=== PATIENT | female | born 1990 | race Caucasian/White ===

== ENCOUNTER 2020-06-07 11:32 | Emergency (ER) | payer BC ==
[2020-06-07] MEDS ORDERED: Acetaminophen/oxyCODONE 325-10 MG Tab PO ONE (12:21)
--- NOTE | 2020-06-07 12:21 | EDM.PDOC ---
ED HPI GENERAL MEDICAL PROBLEM - General Chief Complaint: Gastrointestinal Problem Stated Complaint: PAIN Time Seen by Provider: 06/07/20 11:37 Source of Information: Reports: Patient History Limitations: Reports: No Limitations - History of Present Illness INITIAL COMMENTS - FREE TEXT/NARRATIVE: 21-year-old female presents for abdominal pain. Patient notes that roughly 2- 1/2 weeks ago she began to experience a sore throat and nonproductive cough. Symptoms seem to improve but she noted pain and fullness in her upper abdomen. She went to her doctor yesterday and had a CT scan of her abdomen and pelvis revealing hepatosplenomegaly. She also had labs and urine studies which showed protein in her urine with other labs grossly unremarkable. She thinks that they did a mononucleosis test but she is not 100% certain. Her doctor told her to come to the emergency department if her pain worsened and she noted this morning that it worsened so she came into the emergency department. Past surgical history of appendectomy abdomen Pain Score (Numeric/FACES): 7 - Related Data Allergies Allergy/AdvReac Type Severity Reaction Status Date / Time No Known Allergies Allergy Verified 06/07/20 12:07 Home Meds: Home Meds Acetaminophen/oxyCODONE [Percocet 325-5 MG] 1 each PO Q6H PRN #12 tab 06/07/20 [Rx] Amoxicillin/Clavulanate K [Augmentin 875-125 MG] 1 tab PO BID 06/07/20 [History] Ibuprofen [Motrin] 600 mg PO Q6H PRN #20 tab 06/07/20 [Rx] busPIRone [Buspar] 06/07/20 [History] lamoTRIgine [LaMICtal] 06/07/20 [History] traZODone 06/07/20 [History] Past Medical History [employer]VEL[employer] History: Reports: - Past Surgical History GI Surgical History: Reports: Appendectomy Musculoskeletal Surgical History: Reports: Other (See Below) Other Musculoskeletal Surgeries/Procedures:: Left Arm Social & Family History - Family History GI: Reports: Other (See Below) Other GI Family History: Liver & Kidney failure - Tobacco Use Tobacco Use Status *Q: Never Tobacco User - Recreational Drug Use Recreational Drug Use: No ED ROS GENERAL - Review of Systems Review Of Systems: Comprehensive ROS is negative, except as noted in HPI. ED EXAM, GENERAL - Physical Exam Exam: See Below Exam Limited By: No Limitations General Appearance: Alert, WD/WN, No Apparent Distress Throat/Mouth: Normal Oropharynx, Normal Voice, No Airway Compromise Head: Atraumatic, Normocephalic Neck: Normal Inspection Respiratory/Chest: No Respiratory Distress, Lungs Clear, Normal Breath Sounds, No Accessory Muscle Use Cardiovascular: Normal Peripheral Pulses, Regular Rate, Rhythm GI/Abdominal: Soft, Other (subjective diffuse TTP) Extremities: Normal Inspection Neurological: Alert Psychiatric: Normal Affect, Normal Mood Skin Exam: Warm, Dry, Intact, Normal Color Course - Vital Signs Last Recorded V/S: Last Vital Signs Temp 97.8 F 06/07/20 12:03 Pulse 96 06/07/20 12:03 Resp 18 06/07/20 12:03 BP 98/65 06/07/20 12:03 Pulse Ox 99 06/07/20 12:03 - Orders/Labs/Meds Labs: Laboratory Tests 06/07/20 Range/Units 07:45 Monoscreen NEGATIVE (NEG) Meds: Medications Discontinued Medications Generic Name Dose Route Start Last Admin Trade Name Paul PRN Reason Stop Dose Admin Ketorolac Tromethamine 30 mg 06/07/20 12:53 06/07/20 13:07 Ketorolac 30 Mg/Ml Sdv IM 06/07/20 12:54 30 mg ONETIME ONE Administration Oxycodone/Acetaminophen 1 tab 06/07/20 12:21 06/07/20 12:53 Acetaminophen/Oxycodone 325-10 Mg Tab PO 06/07/20 12:22 Not Given ONETIME ONE - Re-Assessments/Exams Free Text/Narrative Re-Assessment/Exam: 06/07/20 12:35 Will get monospot and give medication for pain. 06/07/20 13:25 Monospot is negative. Will discharge patient with pain medication but recommend that she follow-up with her primary care physician. I do long discussion with patient regarding diagnostic uncertainty and why it is important for her to follow-up with her PCP. Return precautions including worsening of pain and inability to tolerate p.o. were discussed. Departure - Departure Time of Disposition: 13:28 Disposition: Home, Self-Care 01 Condition: Good Clinical Impression: Abdominal pain Qualifiers: Abdominal location: generalized Qualified Code(s): R10.84 - Generalized abdominal pain - Discharge Information Prescriptions: Ibuprofen [Motrin] 600 mg PO Q6H PRN #20 tab PRN Reason: Pain Acetaminophen/oxyCODONE [Percocet 325-5 MG] 1 each PO Q6H PRN #12 tab PRN Reason: Pain Instructions: Abdominal Pain, Adult Referrals: Adriana Baez NP [Primary Care Provider] - Forms: ED Department Discharge Additional Instructions: Your Monospot test was negative. The rest of your labs that your primary care physician ordered were grossly unremarkable but you will need to discuss with her the results. I do not believe you are having a medical emergency requiring admission to the hospital, but there is diagnostic uncertainty and this will certainly need to be followed up. You can follow-up with your primary care physician and she may need to send you to a specialist if she is unable to determine the cause of your enlarged liver and spleen. There is also the possibility that the Monospot test that we did was a false negative to your primary care physician may talk to you about further testing for that. The following information is given to patients seen in the emergency department who are being discharged to home. This information is to outline your options for follow-up care. We provide all patients seen in our emergency department with a follow-up referral. The need for follow-up, as well as the timing and circumstances, are variable depending upon the specifics of your emergency department visit. If you don't have a primary care physician on staff, we will provide you with a referral. We always advise you to contact your personal physician following an emergency department visit to inform them of the circumstance of the visit and for follow-up with them and/or the need for any referrals to a consulting specialist. The emergency department will also refer you to a specialist when appropriate. This referral assures that you have the opportunity for follow-up care with a specialist. All of these measure are taken in an effort to provide you with optimal care, which includes your follow-up. Under all circumstances we always encourage you to contact your private physician who remains a resource for coordinating your care. When calling for follow-up care, please make the office aware that this follow-up is from your recent emergency room visit. If for any reason you are refused follow-up, please contact the [facility] Emergency Department at and asked to speak to the emergency department charge nurse. Please follow up with your primary care physician. If you do not have a primary care physician, see below: [facility] [address], [place] [id number] [facility] [address] [place], [place] [id number] [facility] [address] [place] [address] Sepsis Event Note (ED) - Evaluation Sepsis Screening Result: Possible Sepsis Risk - Focused Exam Vital Signs: Vital Signs Temp Pulse Resp BP Pulse Ox 06/07/20 12:03 97.8 F 96 18 98/65 99
[2020-06-07] MEDS ORDERED: Ketorolac 30 MG/ML SDV IM ONE (12:53)
[2020-06-07 13:44] VITALS: BP 110/73; PULSE 91
== END 2020-06-07 13:44 | disposition home or self-care (01) ==
LOC: MW.ED 11:32
DX: R10.84 Generalized abdominal pain (principal); Z90.49 Acquired absence of other specified parts of digestive tract; Z79.899 Other long term (current) drug therapy
CPT/HCPCS: 36415; 86308; 96372; 99284; J1885; 99283

== ENCOUNTER 2023-05-19 08:51 | Emergency (ER) | payer OTHER ==
[2023-05-19] MEDS ORDERED: Sodium Chloride 0.9% 20 ML SDV IV PRN (08:57)
[2023-05-19 09:13] LABS: BASOPHILS ABSOLUTE AUTO 0.07 K/uL (0.00-0.20); BASOPHILS PERCENT AUTO 0.8 % (0.0-1.0); EOSINOPHILS ABSOLUTE AUTO 0.15 K/uL (0.00-0.45); EOSINOPHILS PERCENT AUTO 1.7 % (0.0-6.0); HEMATOCRIT 41.4 % (37.0-47.0); HEMOGLOBIN 14.1 g/dL (12.0-16.0); IMMATURE GRAN ABSOLUTE AUTO 0.12 K/uL (0.00-0.05); IMMATURE GRAN PERCENT AUTO 1.3 % (0.0-0.4); LYMPHOCYTES PERCENT AUTO 33.3 % (24.0-44.0); MEAN CORPUSCULAR HEMOGLOBIN 29.3 pg (28.0-32.0); MEAN CORPUSCULAR HGB CONC 34.1 g/dL (32.0-36.0); MEAN CORPUSCULAR VOLUME 85.9 fL (83.0-99.0); MEAN PLATELET VOLUME 8.8 fL (9.4-12.3); MONOCYTES ABSOLUTE AUTO 0.43 K/uL (0.00-0.80); MONOCYTES PERCENT AUTO 4.8 % (0.0-8.0); NEUTROPHILS ABSOLUTE AUTO 5.23 K/uL (1.80-7.70); NEUTROPHILS PERCENT AUTO 58.1 % (41.0-71.0); PLATELET COUNT,PLT 277 K/uL (150-400); RED BLOOD CELL COUNT 4.82 M/uL (4.10-5.30)
[2023-05-19] MEDS: Iopamidol 755 MG/ML 500 ML Multipack Bottle IVPUSH STA (09:16)
[2023-05-19] MEDS: Sodium Chloride 0.9% 2.5 ML Syringe FLUSH PRN (09:29)
[2023-05-19] MEDS: Sodium Chloride 0.9% 10 ML Syringe FLUSH PRN (09:29)
[2023-05-19] MEDS: Sodium Chloride 0.9% 1,000 ML IV STA (10:11)
[2023-05-19 10:21] LABS: ALANINE AMINOTRANSFERASE,ALT 41 IU/L (14-63); ALBUMIN 3.8 g/dL (3.4-5.0); ALKALINE PHOSPHATASE 106 U/L (46-116); ASPARTATE AMNIOTRANSFERASE,AST 14 IU/L (15-37); BILIRUBIN TOTAL 0.3 mg/dL (0.2-1.0); BLOOD UREA NITROGEN,BUN 9 mg/dL (7.0-18.0); CALCIUM 9.5 mg/dL (8.5-10.1); CARBON DIOXIDE,CO2 22.3 mmol/L (21.0-32.0); CHLORIDE,CL 106 mmol/L (98-107); CREATININE 0.9 mg/dL (0.6-1.0); GLUCOSE RANDOM 107 mg/dL (74-106); POTASSIUM,K 3.7 mmol/L (3.5-5.1); PROTEIN TOTAL,TP 7.7 g/dL (6.4-8.2); SODIUM,NA 141 mmol/L (136-145)
[2023-05-19 10:22] LABS: ESTIMATED GFR 88 mL/min (>60)
[2023-05-19 10:27] LABS: APPEARANCE,URINE CLEAR; BILIRUBIN,URINE NEGATIVE (NEGATIVE); COLOR,URINE YELLOW; GLUCOSE,URINE NEGATIVE (NEGATIVE); KETONES,URINE NEGATIVE (NEGATIVE); LEUKOCYTE ESTERASE,URINE NEGATIVE (NEGATIVE); NITRITE,URINE NEGATIVE (NEGATIVE); OCCULT BLOOD,URINE NEGATIVE (NEGATIVE); PROTEIN,URINE NEGATIVE (NEGATIVE)
[2023-05-19] MEDS: Ketorolac 30 MG/ML SDV IVPUSH ONE (10:32)
[2023-05-19 10:35] LABS: INR 0.94 (0.86-1.11); PTT,PARTIAL THROMBOPLSTIN TIME 25.6 SEC (23.9-30.7)
[2023-05-19] MEDS: Gadobenate Dimeglumine 529 MG/ML 20 ML SDV IVPUSH STA (11:17)
[2023-05-19 12:32] VITALS: BP 127/87; PULSE 84
[2023-05-19] MEDS: atorvaSTATin 20 MG Tab PO ONE (12:33)
[2023-05-19] MEDS: Aspirin 81 MG Tab.Chew PO ONE (12:33)
== END 2023-05-19 12:50 ==
LOC: MW.ED 08:51
DX: I63.9 Cerebral infarction, unspecified (principal); Z90.49 Acquired absence of other specified parts of digestive tract; Z79.899 Other long term (current) drug therapy
CPT/HCPCS: 36415; 70450; 70496; 70498; 70553; 71045; 80053; 81003; 82947; 84443; 85025; 85610; 85730; 93005; 96361; 96374; 99285; A9270; A9577; J1885; J3490; J7030; Q9967

== ENCOUNTER 2023-10-12 10:02 | Emergency (ER) | payer OTHER ==
[2023-10-12] MEDS: Sodium Chloride 0.9% 1,000 ML IV ONE (10:45)
[2023-10-12] MEDS: Ondansetron 4 MG/2 ML SDV IVPUSH ONE (10:45)
[2023-10-12 10:46] LABS: APPEARANCE,URINE CLEAR; BILIRUBIN,URINE NEGATIVE (NEGATIVE); COLOR,URINE YELLOW; GLUCOSE,URINE NEGATIVE (NEGATIVE); KETONES,URINE NEGATIVE (NEGATIVE); LEUKOCYTE ESTERASE,URINE TRACE (NEGATIVE); NITRITE,URINE NEGATIVE (NEGATIVE); OCCULT BLOOD,URINE LARGE (NEGATIVE); PROTEIN,URINE NEGATIVE (NEGATIVE); UROBILINOGEN,URINE 0.2 EU/dL (<2.0)
[2023-10-12] MEDS: Morphine 4 MG/ML Syringe IVPUSH ONE (10:46)
[2023-10-12] MEDS: Ketorolac 30 MG/ML SDV IVPUSH ONE (10:54)
[2023-10-12 10:55] LABS: BACTERIA,URINE FEW (NEGATIVE); EPITHELIAL CELLS,URINE FEW (NONE-FEW); MUCUS,URINE LIGHT (NONE-MOD); RBC,URINE 15-18 (0-2/HPF); WBC,URINE 0-2 (0-5/HPF)
[2023-10-12 10:58] LABS: BASOPHILS ABSOLUTE AUTO 0.06 K/uL (0.00-0.20); BASOPHILS PERCENT AUTO 0.8 % (0.0-1.0); EOSINOPHILS ABSOLUTE AUTO 0.13 K/uL (0.00-0.45); EOSINOPHILS PERCENT AUTO 1.6 % (0.0-6.0); HEMATOCRIT 39.9 % (37.0-47.0); HEMOGLOBIN 13.7 g/dL (12.0-16.0); IMMATURE GRAN ABSOLUTE AUTO 0.08 K/uL (0.00-0.05); LYMPHOCYTES PERCENT AUTO 33.8 % (24.0-44.0); MEAN CORPUSCULAR HEMOGLOBIN 29.5 pg (28.0-32.0); MEAN CORPUSCULAR HGB CONC 34.3 g/dL (32.0-36.0); MEAN CORPUSCULAR VOLUME 85.8 fL (83.0-99.0); MEAN PLATELET VOLUME 9.1 fL (9.4-12.3); NEUTROPHILS ABSOLUTE AUTO 4.61 K/uL (1.80-7.70); NEUTROPHILS PERCENT AUTO 57.8 % (41.0-71.0); PLATELET COUNT,PLT 305 K/uL (150-400); RED BLOOD CELL COUNT 4.65 M/uL (4.10-5.30); WHITE BLOOD CELL COUNT,WBC 7.98 K/uL (3.9-11.3)
[2023-10-12 11:23] LABS: A/G RATIO 1.1 (0.9-1.6); ALBUMIN 3.7 g/dL (3.4-5.0); BILIRUBIN TOTAL 0.4 mg/dL (0.2-1.0); CARBON DIOXIDE,CO2 24.6 mmol/L (21.0-32.0); EST CRCL DRUG DOSING (CG) 61.51 mL/min; POTASSIUM,K 3.9 mmol/L (3.5-5.1); PROTEIN TOTAL,TP 7.2 g/dL (6.4-8.2)
[2023-10-12] MEDS: Tamsulosin 0.4 MG Cap.ER PO ONE (12:45)
[2023-10-12 13:14] VITALS: BP 115/80; PULSE 65
== END 2023-10-12 13:13 | disposition home or self-care (01) ==
LOC: MW.ED 10:02
DX: N13.2 Hydronephrosis with renal and ureteral calculous obstruction (principal); Z79.899 Other long term (current) drug therapy; Z90.49 Acquired absence of other specified parts of digestive tract; Z75.8 Other problems related to medical facilities and other health care
CPT/HCPCS: 36415; 74176; 80053; 81001; 81025; 85025; 87086; 96361; 96374; 96375; 99284; J2270; J2405; J7030

== ENCOUNTER 2023-11-21 15:19 | Emergency (ER) | payer OTHER ==
[2023-11-21] MEDS ORDERED: Sodium Chloride 0.9% 10 ML Syringe FLUSH PRN (16:36)
[2023-11-21] MEDS ORDERED: Sodium Chloride 0.9% 2.5 ML Syringe FLUSH PRN (16:36)
[2023-11-21] MEDS: Ondansetron 4 MG/2 ML SDV IVPUSH ONE (16:47)
[2023-11-21] MEDS: Sodium Chloride 0.9% 1,000 ML IV ONE (16:47)
[2023-11-21] MEDS: Ketorolac 30 MG/ML SDV IVPUSH ONE (16:47)
[2023-11-21 16:58] LABS: BASOPHILS ABSOLUTE AUTO 0.07 K/uL (0.00-0.20); BASOPHILS PERCENT AUTO 0.4 % (0.0-1.0); EOSINOPHILS ABSOLUTE AUTO 0.05 K/uL (0.00-0.45); EOSINOPHILS PERCENT AUTO 0.3 % (0.0-6.0); HEMATOCRIT 41.5 % (37.0-47.0); HEMOGLOBIN 14.3 g/dL (12.0-16.0); IMMATURE GRAN ABSOLUTE AUTO 0.07 K/uL (0.00-0.05); IMMATURE GRAN PERCENT AUTO 0.4 % (0.0-0.4); LYMPHOCYTES ABSOLUTE AUTO 1.51 K/uL (1.00-4.80); LYMPHOCYTES PERCENT AUTO 9.2 % (24.0-44.0); MEAN CORPUSCULAR HEMOGLOBIN 29.2 pg (28.0-32.0); MEAN CORPUSCULAR HGB CONC 34.5 g/dL (32.0-36.0); MEAN CORPUSCULAR VOLUME 84.9 fL (83.0-99.0); MONOCYTES PERCENT AUTO 4.3 % (0.0-8.0); NEUTROPHILS ABSOLUTE AUTO 14.04 K/uL (1.80-7.70); NEUTROPHILS PERCENT AUTO 85.4 % (41.0-71.0); PLATELET COUNT,PLT 347 K/uL (150-400); RED BLOOD CELL COUNT 4.89 M/uL (4.10-5.30); WHITE BLOOD CELL COUNT,WBC 16.44 K/uL (3.9-11.3)
[2023-11-21 17:20] LABS: A/G RATIO 1.2 (0.9-1.6); ALBUMIN 4.3 g/dL (3.4-5.0); BILIRUBIN TOTAL 0.7 mg/dL (0.2-1.0); CALCIUM 9.5 mg/dL (8.5-10.1); CARBON DIOXIDE,CO2 24.6 mmol/L (21.0-32.0); CREATININE 1.4 mg/dL (0.6-1.0); EST CRCL DRUG DOSING (CG) 43.53 mL/min; POTASSIUM,K 4.4 mmol/L (3.5-5.1); PROTEIN TOTAL,TP 7.9 g/dL (6.4-8.2)
[2023-11-21 17:21] LABS: APPEARANCE,URINE SLT CLOUDY; BILIRUBIN,URINE NEGATIVE (NEGATIVE); COLOR,URINE YELLOW; GLUCOSE,URINE NEGATIVE (NEGATIVE); KETONES,URINE 15 mg/dL (NEGATIVE); LEUKOCYTE ESTERASE,URINE TRACE (NEGATIVE); NITRITE,URINE NEGATIVE (NEGATIVE); OCCULT BLOOD,URINE MODERATE (NEGATIVE); PROTEIN,URINE NEGATIVE (NEGATIVE); UROBILINOGEN,URINE 0.2 EU/dL (<2.0)
[2023-11-21 17:29] LABS: BACTERIA,URINE FEW (NEGATIVE); EPITHELIAL CELLS,URINE FEW (NONE-FEW); MUCUS,URINE LIGHT (NONE-MOD)
[2023-11-21] MEDS: cefTRIAXone 1 GM in Sodium Chloride 0.9% 50 ML IV ONE (19:05)
[2023-11-21] MEDS: Morphine 4 MG/ML Syringe IVPUSH ONE (19:05)
[2023-11-21 20:35] VITALS: BP 112/72; PULSE 72
== END 2023-11-21 20:05 | disposition home or self-care (01) ==
LOC: MW.ED 15:19
DX: N13.2 Hydronephrosis with renal and ureteral calculous obstruction (principal); Z86.73 Personal history of transient ischemic attack (TIA), and cerebral infarction without residual deficits; Z75.8 Other problems related to medical facilities and other health care; Z79.899 Other long term (current) drug therapy
CPT/HCPCS: 36415; 74176; 80053; 81001; 81025; 83690; 85025; 96361; 96365; 96375; 99284; J0696; J1885; J2270; J2405; J3490; J7030